=== PATIENT | female | born 1970 | race Caucasian/White ===

== ENCOUNTER 2022-03-30 08:56 | Emergency (ER) | payer OTHER, BC, SELFPAY ==
[2022-03-30 08:58] VITALS: BP 132/79; PULSE 72; RESP 16; TEMP 36.5; O2SAT 100
--- NOTE | 2022-03-30 09:00 | ECG_ITS ---
Measurements Intervals [place] Rate: 69 P: 42 MO: 180 QRS: 38 QRSD: 80 T: 28 QT: 396 QTc: 425 Interpretive Statements SINUS RHYTHM BASELINE ARTIFACT- I, II, III, AVR, AVL, AVF, V4, V6 NORMAL ECG NO PREVIOUS ECG AVAILABLE FOR COMPARISON Electronically Signed On 03-30-2022 9:40:06 [employer] by Steven Morales D.O.
[2022-03-30 09:23] LABS: Basophils Percent Auto 0.3 % (0.2-1.2); Eosinophils Absolute Auto 0.2 K/mm3 (0-0.3); Hematocrit 40.5 % (37.0-47.0); Immature Granulocyte Absolute 0.05 K/mm3 (0.00-0.031); Immature Granulocyte Percent A 0.7 % (0-0.5); Lymphocytes Absolute Auto 1.27 K/mm3 (0.9-3.2); Lymphocytes Percent Auto 17.2 % (18.3-44.2); Mean Corpuscular HGB Conc 32.1 g/dl (32-36); Mean Corpuscular Hemoglobin 29.6 pg (26-34); Mean Corpuscular Volume 92.3 fl (80-100); Mean Platelet Volume 10.4 fl (7.4-10.4); Monocytes Absolute Auto 0.6 K/mm3 (0.1-0.6); Monocytes Percent Auto 7.8 % (2.6-8.5); Neutrophils Absolute Auto 5.3 K/mm3 (1.3-6.7); Platelet Count Result 243 k/mm3 (150-375); Red Blood Count 4.39 M/mm3 (4.2-5.4); Red Cell Distribution Width 12.9 % (11.5-14.5); White Blood Count 7.4 K/mm3 (4.5-10.0)
[2022-03-30 09:26] LABS: Alanine Aminotransferase 19 U/L (6-35); Albumin Level 3.9 g/dL (3.5-5.1); Alkaline Phosphatase 84 U/L (38-126); Anion Gap 6 mmol/L (8-16); Aspartate Amino Transferase 21 U/L (14-36); Bilirubin,Total 0.3 mg/dL (0.2-1.3); Blood Urea Nitrogen 13 mg/dL (7-17); Calcium 8.3 mg/dL (8.4-10.2); Carbon Dioxide 23 mmol/L (22-30); Chloride 105 mmol/L (98-107); Estimated CRCL calculation 93 ml/min; Estimated Glomerular Filt Rate > 60; Glucose 90 mg/dL (65-110); Potassium 3.9 mmol/L (3.4-5.0); Sodium 134 mmol/L (137-145)
[2022-03-30 10:06] VITALS: BP 113/75; PULSE 77; RESP 12; O2SAT 98
--- NOTE | 2022-03-30 10:44 | ED.ARRPALP ---
HPI - Arrhythmia/Palpitations General Chief Complaint: Arrhythmia/Palpitations Stated Complaint: SOB, heart palpitations Time Seen by Provider: 03/30/22 08:59 Source: patient Mode of arrival: EMS Limitations: no limitations History of Present Illness HPI narrative: 51-year-old female with past medical history of asthma, migraines, anxiety, and depression who presents with palpitations that began 1 week ago. She states she has been having episodes where she experiences chest palpitations, dizziness, and feeling like the room is spinning. She had one episode where she experienced sharp chest pain that lasted a few seconds. Usually episodes last less than 1 minute. Patient does have a recent stressor stating that her friend recently. No recent nausea, vomiting, diarrhea, fevers, chills, shortness of breath, sick contact, changes in medication, and loss of consciousness. Related Data Allergies Allergy/AdvReac Type Severity Reaction Status Date / Time Sulfa (Sulfonamide Allergy Mild Rash Verified 03/30/22 09:12 Antibiotics) Penicillins Allergy Unknown Hives Verified 03/30/22 09:12 BEE Allergy Mild Anaphylaxis Uncoded 03/30/22 09:12 SULFAMETHOXAZOLE (Generic Allergy Mild Y Uncoded 03/30/22 09:12 Allergy) Review of Systems Review of Systems: All systems reviewed & are unremarkable except as noted in HPI and below Constitutional: Constitutional: Reports no additional constitutional complaints Eyes: Eyes: Reports no additional eye complaints ENT: Reports system reviewed and no additional complaints, except as documented Cardiovascular: Cardiovascular: Reports as per HPI Respiratory: Respiratory: Reports no additional respiratory complaints Gastrointestinal: Gastrointestinal: Reports no additional gastrointestinal complaints Musculoskeletal: Musculoskeletal: Reports no additional musculoskeletal complaints Integumentary/Breasts: Skin/Breast: Reports system reviewed and no additional complaints, except as docu Neurologic: Reports as per HPI Psychiatric: Psychiatric: Reports no additional psychiatric complaints Exam Narrative: GENERAL: Well-appearing, well-nourished, and in no acute distress. HEAD: Normocephalic, atraumatic. EYES: PERRLA and EOMI. NECK: Supple. CHEST: Clear to auscultation. No respiratory distress. HEART: Regular rate and rhythm. No murmur heard. Normal peripheral pulses. ABDOMEN: Soft, nontender, nondistended, normal active bowel sounds. EXTREMITIES: Normal range of motion. No edema. SKIN: Warm, dry, no rash. NEURO: No focal deficits. Alert and oriented x3. PSYCH: Normal mood and affect. Course Course Emergency Course: Patient remained asymptomatic while she was here in the ER her EKG in the ER was normal sinus have not seen any ectopic or irregular beats. Informed her about the lab work, EKG findings. Recommended her to continue home medications, follow-up with the primary doctor Vital Signs Vital signs: Vital Signs Temperature 36.5 C 03/30/22 08:58 Pulse Rate 72 03/30/22 08:58 Respiratory Rate 16 03/30/22 08:58 Blood Pressure 132/79 03/30/22 08:58 Pulse Oximetry 100 03/30/22 08:58 Oxygen Delivery Room Air 03/30/22 08:58 Temperature 36.5 C 03/30/22 08:58 Pulse Rate 77 03/30/22 10:06 Respiratory Rate 12 03/30/22 10:06 Blood Pressure 113/75 03/30/22 10:06 Pulse Oximetry 98 03/30/22 10:06 Oxygen Delivery Room Air 03/30/22 08:58 MDM - Arrhythmia/Palpitations MDM Narrative Medical decision making narrative: 51-year-old with a history of anxiety having intermittent palpitations for past 1 week her EKG upon arrival was normal sinus rhythm with no acute findings will do electrolytes and cardiac work-up. Differential Diagnosis Differential diagnosis: Likely palpitations, anxiety, sinus tachycardia and ventricular premature beats Medical Records Attestation: I reviewed the patient's medical records. Lab Data Attestation: I revie
[2022-03-30 11:07] VITALS: BP 107/60; PULSE 72; RESP 16; O2SAT 98
== END 2022-03-30 11:12 | disposition home or self-care (01) ==
PROVIDERS: Emergency Provider Family Medicine; PCP Internal Medicine
DX: F41.9 Anxiety disorder, unspecified (principal); R00.2 Palpitations; J45.909 Unspecified asthma, uncomplicated
CPT/HCPCS: 36415; 80053; 85025; 93005; 99284

== ENCOUNTER 2023-05-16 00:32 | Day surgery (SDC) | payer BC, SELFPAY ==
[2023-04-27 13:36] VITALS: BMI 41.2
--- NOTE | 2023-05-08 14:59 | PM.HPGS ---
History of Present Illness History of Present Illness Consent: Risks, benefits, and alternatives have been discussed and questions answered. Patient agrees to proceed with procedure. Chief complaint: neoplasm screening Narrative: Nneka Gonsalez is a 52 year old female Referred for colon cancer screening. Review of Systems Review of Systems: All systems reviewed & are unremarkable except as noted in HPI and below PMFSH Social History Social History Smoking status: Never smoker Alcohol intake: current Drinks per week: 2 Substance use type: does not use Living arrangements: with family Spiritual care concerns: No Meds Home Medications and Allergies Home Medications Medication Instructions Recorded Confirmed Type escitalopram oxalate 20 mg tablet 20 mg PO DAILY 04/27/23 04/27/23 History topiramate 50 mg tablet 50 mg PO DAILY 04/27/23 04/27/23 History Allergies Allergy/AdvReac Type Severity Reaction Status Date / Time Sulfa (Sulfonamide Allergy Mild Rash Verified 04/27/23 13:35 Antibiotics) Penicillins Allergy Unknown Hives Verified 04/27/23 13:35 BEE Allergy Mild Anaphylaxis Uncoded 04/27/23 13:35 SULFAMETHOXAZOLE (Generic Allergy Mild Y Uncoded 04/27/23 13:35 Allergy) Exam Resp: Auscultation: clear to auscultation bilaterally Cardio: Rate: regular rate Rhythm: regular rhythm GI: GI Palp: Yes Soft to palpation and No Tenderness to palpation present (GI) Assessment and Plan Assessment and plan (1) Colon cancer screening: Code(s): Z12.11 - Encounter for screening for malignant neoplasm of colon Status: Acute Assessment and Plan: Colonoscopy with possible biopsy or polypectomy or cautery or injection of substances.
--- NOTE | 2023-05-12 13:50 | SUR.PREOP ---
Patient called regarding upcoming procedure. Voicemail left regarding appointment times.
[2023-05-16 09:17] VITALS: BP 121/68; PULSE 70; RESP 18; TEMP 36.4; O2SAT 99; BMI 41.3
[2023-05-16] MEDS: LACTATED RINGERS 1,000 ML 150 ML IV CONT (09:36)
--- NOTE | 2023-05-16 09:46 | WPDANESEPPF ---
Anes - Initial Pre Proc Eval Procedure: Operation Date: 05/16/23 10:30 Proposed Procedures p Screening Colonoscopy - Danis Miranda MD Date/Time: 05/16/23 09:46 Surgeon: Danis Miranda MD Pre Op Diagnosis: neoplasm screening Patient Data Age: 52 Gender: F Height: 1.63 m Weight: 109.4 kg Last Vital Signs Temp 97.5 F L 05/16/23 09:17 Pulse 70 05/16/23 09:17 Resp 18 05/16/23 09:17 BP 121/68 05/16/23 09:17 Pulse Ox 99 05/16/23 09:17 O2 Del Method Room Air 05/16/23 09:17 Allergies Allergy/AdvReac Type Severity Reaction Status Date / Time Sulfa (Sulfonamide Allergy Mild Rash Verified 04/27/23 13:35 Antibiotics) Penicillins Allergy Unknown Hives Verified 04/27/23 13:35 BEE Allergy Mild Anaphylaxis Uncoded 04/27/23 13:35 SULFAMETHOXAZOLE (Generic Allergy Mild Y Uncoded 04/27/23 13:35 Allergy) Home Medications Medication Instructions Recorded Confirmed Type escitalopram oxalate 20 mg tablet 20 mg PO DAILY 04/27/23 04/27/23 History topiramate 50 mg tablet 50 mg PO DAILY 04/27/23 04/27/23 History Patient hx anesthesia problems: none Family hx anesthesia problems: none Results Review: All pre-operative results and documents have been reviewed as part of the pre-operative evaluation. [facility] Social History Social History Smoking status: Never smoker Alcohol intake: current Drinks per week: 2 Substance use type: does not use Living arrangements: with family Spiritual care concerns: No Anes - Eval Final PreProcedure Day of Procedure 05/16/23 09:46 Patient weight: morbidly obese Heart: regular rate and rhythm Lungs: clear to auscultation Airway: Mallampati scale class II Neurological: alert and oriented Last oral intake: >/= 8 hours ASA classification: III Emergent: no Anesthetic plan: proceed Anesthesia type and monitoring: general GIVS and standard monitoring Results Review: All pre-operative results and documents have been reviewed as part of the pre-operative evaluation. Informed Consent: The patient's anesthetic plan and its attendant risks and benefits were discussed with the patient/family/POA. Questions were solicited and answers provided to the satisfaction of the patient/family/POA.
[2023-05-16 10:32] VITALS: BP 102/64; PULSE 69; RESP 17; O2SAT 100
[2023-05-16 10:42] VITALS: BP 105/68; PULSE 65; RESP 21; O2SAT 100
[2023-05-16 10:52] VITALS: BP 107/72; PULSE 64; RESP 18; O2SAT 100
== END 2023-05-16 11:00 | disposition home or self-care (01) ==
PROVIDERS: PCP Internal Medicine; Visit Provider Internal Medicine Gastroenterology
PROC: 0DJD8ZZ Inspection of Lower Intestinal Tract, Via Natural or Artificial Opening Endoscopic (ICD-10-PCS; CPT 45378; principal; 2023-05-16 10:30)
DX: Z12.11 Encounter for screening for malignant neoplasm of colon (principal); D12.5 Benign neoplasm of sigmoid colon; K57.30 Diverticulosis of large intestine without perforation or abscess without bleeding; F10.90 Alcohol use, unspecified, uncomplicated; Z79.899 Other long term (current) drug therapy; E66.01 Morbid (severe) obesity due to excess calories; Z68.41 Body mass index [BMI] 40.0-44.9, adult
CPT/HCPCS: 45385; 88305; J2704; J7120

== ENCOUNTER 2025-01-28 12:55 | Emergency (ER) | payer BC, SELFPAY ==
--- NOTE | ~2025-01-28 | US_ITS ---
EXAMINATION: US venous doppler [facility] DATE: 01/28/2025 15:03 INDICATION: Pain and swelling TECHNIQUE: Grayscale ultrasound images without and with compression and Doppler ultrasound images of the left lower extremity veins were obtained. COMPARISON: None. FINDINGS: The visualized portions of left common femoral vein, profunda (deep) femoral vein, femoral vein, popliteal vein, peroneal veins, posterior tibial veins, and greater saphenous vein outflow are patent. IMPRESSION: No deep venous thrombosis seen in the left lower extremity deep venous system. Reviewed, dictated and finalized at location A. COMMUNICATIONS CLERK IMPRESSION: No deep venous thrombosis seen in the left lower extremity deep ve nous system.
--- NOTE | ~2025-01-28 | XR_ITS ---
EXAMINATION: XR knee LT 3V DATE: 01/28/2025 14:13 INDICATION: Left knee pain TECHNIQUE: Anteroposterior, oblique and crosstable lateral views of the left knee were obtained COMPARISON: None. FINDINGS: Alignment is normal. No fracture. Joint spaces are normal on nonweightbearing imaging. Minimal left knee joint effusion without layering lipohemarthrosis. Soft tissues are unremarkable. IMPRESSION: 1. Minimal left knee joint effusion. Otherwise unremarkable left knee radiographs. Reviewed, dictated and finalized at location A. ECTIONAL PROGRAM OFFICER IMPRESSION: 1. Minimal left knee joint effusion. Otherwise unremarkable left knee radiograp hs.
[2025-01-28 13:07] VITALS: BP 156/86; PULSE 88; RESP 18; TEMP 36.8; O2SAT 100
--- NOTE | 2025-01-28 14:20 | ED.GENADULT ---
HPI - General Adult General Chief complaint: Extremity Injury, Lower Stated complaint: extreme L knee pain Time Seen by Provider: 01/28/25 13:24 History of Present Illness HPI narrative: 54-year-old female presented emergency department for evaluation for worsening left knee pain. Patient reports back in September she had a left knee injury which she felt she hyperextended. Patient has been utilizing ibuprofen for pain control. Patient reports he has had worsening pain over the last 2 weeks and acutely worsening pain today. Patient attempted to schedule outpatient follow-up with her primary care physician yesterday but states that the pain was too bad so she presented to the emergency department. Patient was transferred by EMS and did receive morphine EN route. Upon arrival emergency department patient still appears uncomfortable but patient declined a additional medications for pain control. Patient does report intermittent left calf tenderness to palpation but has no current calf pain. Patient denies any recent falls or injuries. Patient denies any other pain or injury. Related Data Home Medications ?Medication ?Instructions ?Recorded ?Confirmed ?Last Taken ?Type topiramate 50 mg tablet 50 mg PO DAILY 04/27/23 08/06/24 Unknown History bupropion HCl 300 mg 24 hr tablet, 300 mg PO QAM 08/06/24 08/06/24 Unknown History extended release (Wellbutrin XL) buspirone 5 mg tablet 5 mg PO TID 08/06/24 08/06/24 Unknown History clomipramine 25 mg capsule 25 mg PO DAILY 08/06/24 08/06/24 Unknown History ergocalciferol (vitamin D2) 1,250 1,250 mcg PO 2XW 08/06/24 08/06/24 Unknown History mcg (50,000 unit) capsule Allergies Allergy/AdvReac Type Severity Reaction Status Date / Time Sulfa (Sulfonamide Allergy Mild Rash Verified 08/06/24 07:35 Antibiotics) Penicillins Allergy Unknown Hives Verified 08/06/24 07:35 BEE Allergy Mild Anaphylaxis Uncoded 08/06/24 07:35 SULFAMETHOXAZOLE (Generic Allergy Mild Y Uncoded 08/06/24 07:35 Allergy) Review of Systems Review of Systems: All systems reviewed & are unremarkable except as noted in HPI and below PMFSH Social History Social History (Reviewed 08/06/24 @ 07:36 by Annie Sam, [facility]) Smoking status: Never smoker Alcohol intake: current Drinks per week: 2 Substance use type: does not use Living arrangements: with family Spiritual care concerns: No Exam Narrative: APPEARANCE: Well appearing, no pain, no distress, well-nourished. HEAD: normocephalic, atraumatic. EYES: PERRLA/EOMI, conjunctivae clear. NOSE: Normal no drainage EARS:TMS clear with good light reflex. THROAT: Pharynx clear, no exudate. NECK: Supple. No adenopathy, no masses. RESPIRATORY: Airway patent, respirations nonlabored. Clear to auscultation bilaterally, no rales, rhonchi, wheezing. CARDIOVASCULAR: Regular rate and rhythm without murmurs rubs or gallops. ABDOMINAL: Soft, nontender, nondistended, normal bowel sounds MUSCULOSKELETAL: Left knee tender to palpation, no lower extremity edema but calf tenderness NEURO: Alert. Cranial nerves II through XII intact. Grossly intact SKIN: Warm, dry. Normal Color Course Vital Signs Vital signs: Vital Signs Temperature 98.3 F 01/28/25 13:07 Pulse Rate 88 01/28/25 13:07 Respiratory Rate 18 01/28/25 13:07 Blood Pressure 156/86 H 01/28/25 13:07 Pulse Oximetry 100 01/28/25 13:07 Oxygen Delivery Room Air 01/28/25 13:07 Temperature 98.3 F 01/28/25 13:07 Pulse Rate 86 01/28/25 16:01 Respiratory Rate 18 01/28/25 16:01 Blood Pressure 151/85 H 01/28/25 16:01 Pulse Oximetry 98 01/28/25 16:01 Oxygen Delivery Room Air 01/28/25 13:07 Medical Decision Making [facility] Narrative Medical decision making narrative: 54-year-old female presents emergency department for evaluation for worsening left knee pain. X-ray was negative for acute fracture. Ultrasound was negative for DVT. I do suspect internal derangement of the knee. Patient was placed that knee immobilizer and patient does have a walker at home. Patient will have follow-up with her orthopedic surgeon. Patient will be benefit from an outpatient MRI to further evaluate her knee. Low concern for septic arthritis or acute fracture. Differential Diagnosis Differential Diagnosis: Septic arthritis, knee contusion, knee strain, a popliteal cyst, DVT Vital Signs Vital Signs: Vital Signs Temperature 98.3 F 01/28/25 13:07 Pulse Rate 88 01/28/25 13:07 Respiratory Rate 18 01/28/25 13:07 Blood Pressure 156/86 H 01/28/25 13:07 Pulse Oximetry 100 01/28/25 13:07 Oxygen Delivery Room Air 01/28/25 13:07 Temperature 98.3 F 01/28/25 13:07 Pulse Rate 86 01/28/25 16:01 Respiratory Rate 18 01/28/25 16:01 Blood Pressure 151/85 H 01/28/25 16:01 Pulse Oximetry 98 01/28/25 16:01 Oxygen Delivery Room Air 01/28/25 13:07 Imaging Data Radiologist's impression: Impressions Knee X-Ray 01/28/25 14:13 IMPRESSION: 1. Minimal left knee joint effusion. Otherwise unremarkable left knee radiographs. Venous Doppler Study 01/28/25 15:06 IMPRESSION: No deep venous thrombosis seen in the left lower extremity deep venous system. Discharge Plan Discharge Clinical Impression: Acute internal derangement of left knee Patient Disposition: Home Condition: Stable Instructions: Antibiotic Form, Crutch Instructions (ED), Knee Pain (ED), Knee Immobilizer (ED) Additional Instructions: naproxen for pain control as directed. [place] as needed for additional pain control. Flexeril for muscle spasm. Knee immobilizer for comfort, crutches or walker for limited weight-bearing. Continue to have close follow-up with your primary care physician. Patient Language: [place]ian Prescriptions: New cyclobenzaprine 10 mg tablet 10 mg PO BID PRN (Reason: muscle spasm) Qty: 14 0RF hydrocodone-acetaminophen 5-325 mg tablet 1 tablet PO Q12H PRN (Reason: pain) Qty: 14 0RF naproxen [Naprosyn] 500 mg tablet 500 mg PO BID 7 Days Qty: 14 0RF No Action bupropion HCl [Wellbutrin XL] 300 mg tablet extended release 24 hr 300 mg PO QAM buspirone 5 mg tablet 5 mg PO TID clomipramine 25 mg capsule 25 mg PO DAILY ergocalciferol (vitamin D2) 1,250 mcg (50,000 unit) capsule 1,250 mcg PO 2XW clindamycin HCl [Cleocin HCl] 300 mg capsule 300 mg PO Q8H Qty: 21 0RF topiramate 50 mg tablet 50 mg PO DAILY Follow-up/Referrals: PHYSICIAN NOT ON STAFF,NONSTAFF [Non-Staff] Ungacta,En F., MD [Physician, Orthopedics]
[2025-01-28] MEDS: HYDROcodone/acetaminophen (*CRX) 7.5-325 MG TABLET 1 TAB PO (14:49)
[2025-01-28 16:01] VITALS: BP 151/85; PULSE 86; RESP 18; O2SAT 98
== END 2025-01-28 16:03 | disposition home or self-care (01) ==
LOC: ANHED 15:55
PROVIDERS: Emergency Provider Emergency Medicine
DX: M23.92 Unspecified internal derangement of left knee (principal); X58.XXXA Exposure to other specified factors, initial encounter
CPT/HCPCS: 73562; 93971; 99284; A9270